=== PATIENT | female | born 2000 | race Caucasian/White ===

== ENCOUNTER 2021-05-02 19:16 | Inpatient (IN) ==
[2021-05-02] MEDS ORDERED: MEPERIDINE 50 MG/1 ML VIAL IV PRN (19:38)
[2021-05-02] MEDS ORDERED: ONDANSETRON 4 MG/2 ML VIAL IV PRN (19:38)
[2021-05-02 19:58] LABS: Basophils % 0.2 % (0.0-0.8); Eosinophils # 0.1 10*3/uL (0.0-0.87); Eosinophils % 0.5 % (0.00-10.9); Hematocrit 39.3 VOL% (35.7-47.0); Hemoglobin 12.9 GM/DL (12.0-16.0); Immature Granulocytes % 0.9 %; Immature Granulocytes Absolute 0.11 #; Lymphocytes # 1.4 10*3/uL (1.4-4.0); Lymphocytes % 11.7 % (21.3-54.2); Mean Corpuscular HGB Conc 32.8 GM/DL (32-36); Mean Corpuscular Volume 92.3 FL (87-102); Mean Platelet Volume 9.6 FL (9.6-12.0); Monocytes % 6.2 % (1.7-12.7); Neutrophils % 80.5 % (38.7-73.9); Platelet Count 374 T/CUMM (130-400); Red Blood Count 4.26 MC/CUMM (3.8-5.5); Red Cell Distribution Width 12.9 % (9.3-17.3); White Blood Count 11.9 T/CUMM (4-12)
[2021-05-02 20:20] LABS: Alanine Aminotransferase < 9 U/L (13-56); Albumin 2.5 G/DL (3.4-5.0); Alkaline Phosphatase 241 U/L (45-117); Aspartate Amino Transferase 11 U/L (0-37); Bilirubin,Total < 0.39 MG/DL (0.20-1.00); Blood Urea Nitrogen 9 MG/DL (7-18); Calcium 9.2 MG/DL (8.5-10.1); Carbon Dioxide 21 MMOL/L (21-32); Estimated Glom Filtration Rate 117 ML/MIN; Glucose 98 MG/DL (74-106); Osmolality,Calculated 275.5 MOS/KG (273-304); Potassium 3.8 MMOL/L (3.5-5.1); Sodium 139 MMOL/L (136-145); Total Protein 7.1 G/DL (6.4-8.2)
[2021-05-02] MEDS: LACTATED RINGERS 1,000 ML IV SCH (21:02)
[2021-05-02] MEDS: BUTORPHANOL 2 MG/ML VIAL IV PRN (21:03)
[2021-05-03] MEDS: BUTORPHANOL 2 MG/ML VIAL IV PRN (00:01)
[2021-05-03] MEDS ORDERED: diphenhydrAMINE 50 MG/1 ML VIAL IV PRN ×2 (00:08)
[2021-05-03] MEDS ORDERED: ePHEDrine 50 MG/ML VIAL IV PRN (00:08)
[2021-05-03] MEDS ORDERED: FAMOTIDINE 20 MG/2 ML VIAL IV ONE (00:08)
[2021-05-03] MEDS ORDERED: ONDANSETRON 4 MG/2 ML VIAL IV ONE (00:08)
[2021-05-03] MEDS ORDERED: CITRIC ACID/SODIUM CITRATE 30 ML UDCUP PO ONE (00:08)
[2021-05-03] MEDS ORDERED: hydrOXYzine HCL 25 MG/1 ML VIAL IM PRN (00:08)
[2021-05-03] MEDS ORDERED: PROMETHAZINE 25 MG/1 ML VIAL IM ONE (00:08)
[2021-05-03] MEDS ORDERED: NALOXONE 0.4 MG/ML VIAL IV PRN (00:08)
[2021-05-03] MEDS ORDERED: fentaNYL 2 MCG/ROPIV 0.2% EPID 100 ML EPIDURAL SCH (00:30)
[2021-05-03] MEDS: LACTATED RINGERS 1,000 ML IV SCH (00:42)
[2021-05-03 01:21] LABS: Bilirubin,Urine Negative (Negative); Blood, Urine Negative (Negative); Glucose,Urine (UA) Negative (Negative); Ketones,Urine 80 mg/dL (Negative); Mucus,Urine Few /LPF (Occasional); Nitrite,Urine Negative (Negative); Protein,Urine 100 MG/DL; RBC,Urine 3 /HPF (0-4); Squamous Epithelial Cell,Urine Occasional /HPF (0-10); Urine Appearance CLEAR (Clear); Urine Color Yellow (Yellow); Urine Specific Gravity 1.027 (1.001-1.035); Urine Urobilinogen < 2.0 EU/DL (0.2-1.0)
[2021-05-03] MEDS ORDERED: OXYTOCIN/LR 20 UNIT/1,000 ML BAG IV SCH ×2 (02:12→04:00)
[2021-05-03] MEDS ORDERED: miSOPROStoL 200 MCG TABLET ONE (02:30)
[2021-05-03] MEDS ORDERED: LIDOCAINE 1% 50 ML VIAL ONE (02:30)
[2021-05-03 03:21] LABS: Cord Venous Blood HCO3 17.9 MMOL/L; Cord Venous Blood PCO2 54.5 MMHG; Cord Venous Blood PO2 24.2
[2021-05-03] MEDS ORDERED: WITCH HAZEL PADS 100/JAR TOP PRN (04:47)
[2021-05-03] MEDS ORDERED: ACETAMINOPHEN 325 MG TABLET PO PRN (04:47)
[2021-05-03] MEDS ORDERED: BENZOCAINE 20%/MENTHOL 0.5% SPRAY 56 GM CAN TOP PRN (04:47)
[2021-05-03] MEDS ORDERED: OXYTOCIN/LR 20 UNIT/1,000 ML BAG IV ONE (04:47)
[2021-05-03] MEDS ORDERED: RHO(D) IMMUNE GLOBULIN 300 MCG SYRINGE IM ONE (04:47)
[2021-05-03] MEDS ORDERED: IBUPROFEN 800 MG TABLET PO PRN (04:47)
[2021-05-03] MEDS ORDERED: MEASLES/MUMPS/RUBELLA VACCINE 0.5 ML VIAL SUBCUT ONE (04:47)
[2021-05-03] MEDS ORDERED: DIPH/TET/ACEL PERT BOOSTER VACCINE 0.5 ML VIAL IM ONE (04:47)
[2021-05-03] MEDS ORDERED: oxyCODONE/ACETAMINOPHEN 5-325 MG TABLET PO PRN (04:47)
[2021-05-03] MEDS ORDERED: HYDROCORTISONE 2.5% RECTAL CREAM 30 GM TUBE TOP PRN (04:47)
[2021-05-03] MEDS ORDERED: BISACODYL 10 MG SUPP RECTAL PRN (04:47)
[2021-05-03] MEDS ORDERED: LANOLIN 50% CREAM 0.3 OZ TUBE TOP PRN (04:47)
[2021-05-03] MEDS: IBUPROFEN 800 MG TABLET PO PRN ×3 (05:39→22:10)
[2021-05-03] MEDS: DOCUSATE SODIUM 100 MG CAPSULE PO SCH ×3 (08:00→20:20)
[2021-05-03] MEDS: oxyCODONE/ACETAMINOPHEN 5-325 MG TABLET PO PRN ×2 (15:23→22:08)
[2021-05-04 05:49] LABS: Basophils # 0.1 10*3/uL (0.0-0.2); Basophils % 0.4 % (0.0-0.8); Eosinophils # 0.2 10*3/uL (0.0-0.87); Eosinophils % 1.4 % (0.00-10.9); Hematocrit 33.4 VOL% (35.7-47.0); Hemoglobin 11.3 GM/DL (12.0-16.0); Immature Granulocytes % 0.7 %; Immature Granulocytes Absolute 0.09 #; Lymphocytes # 2.3 10*3/uL (1.4-4.0); Lymphocytes % 18.7 % (21.3-54.2); Mean Corpuscular HGB Conc 33.8 GM/DL (32-36); Mean Corpuscular Volume 93.3 FL (87-102); Mean Platelet Volume 9.6 FL (9.6-12.0); Monocytes % 5.6 % (1.7-12.7); Neutrophils % 73.2 % (38.7-73.9); Platelet Count 274 T/CUMM (130-400); Red Blood Count 3.58 MC/CUMM (3.8-5.5); Red Cell Distribution Width 13.1 % (9.3-17.3); White Blood Count 12.1 T/CUMM (4-12)
[2021-05-04] MEDS: oxyCODONE/ACETAMINOPHEN 5-325 MG TABLET PO PRN (10:09)
[2021-05-04] MEDS: IBUPROFEN 800 MG TABLET PO PRN ×2 (10:09→18:28)
[2021-05-04] MEDS: DOCUSATE SODIUM 100 MG CAPSULE PO SCH ×2 (10:10→20:53)
[2021-05-05] MEDS: IBUPROFEN 800 MG TABLET PO PRN (03:24)
[2021-05-05 08:53] VITALS: BP 135/76
[2021-05-05] MEDS: DOCUSATE SODIUM 100 MG CAPSULE PO SCH (09:38)
[2021-05-05] MEDS ORDERED: DIPH/TET/ACEL PERT BOOSTER VACCINE 0.5 ML VIAL IM ONE (11:13)
== END 2021-05-05 11:30 | disposition home or self-care (01) | DRG 560 ==
LOC: N.LDOUT 19:16 → N.LD 19:18 → N.OB 05-03 06:02
PROVIDERS: ADMIT Obstetrics & Gynecology; ATTEND Obstetrics & Gynecology